=== PATIENT | male | born 2005 | race Two or more races ===

== ENCOUNTER 2024-12-24 05:41 | Day surgery (SDC) | payer OTHER ==
[2024-12-18 08:26] VITALS: BP 124/75
[2024-12-18 08:41] LABS: BASO % 0.3 % (0.1-1.2); EOS # 0.04 (0.04-0.54); EOS % 0.4 % (0.7-7.0); LYMPH # 1.22 (1.18-3.74); LYMPH % 11.4 % (19.3-53.1); MEAN PLATELET VOLUME 9.30 fl (9.4-12.4); MONO # 0.86 (0.24-0.82); MONO % 8.0 % (4.7-12.5); NEUT # 8.47 (1.56-6.13); NEUT % 79.2 % (34.0-71.1); RED CELL DISTRIBUTION WIDTH 13.2 % (11.6-14.4)
[2024-12-18 08:42] LABS: URINE APPEARANCE Clear; URINE BILIRRUBIN Negative (NEGATIVE); URINE BLOOD Negative; URINE COLOR Yellow; URINE GLUCOSE Negative (NEGATIVE); URINE KETONE Negative (NEGATIVE); URINE LEUKOCYTE Negative; URINE NITRATE Negative; URINE PROTEIN Negative (NEGATIVE); URINE UROBILINOGEN 1.0 E.U./dl
[2024-12-18 08:46] LABS: URINE BACTERIA 45.5 uL (0.0-1933)
[2024-12-18 08:55] LABS: URINE CAST 0.00 uL (0.0-1.40); URINE EPITHELIAL CELLS 0.3 uL (0.0-38.8); URINE RBC 0.8 uL (0.0-20.8); URINE WBC 1.2 uL (0.0-23.2)
[2024-12-18 09:02] LABS: INR 0.97
[2024-12-18 09:35] LABS: ALT/SGPT 29.0 U/L (12-78); AST/SGOT 22.0 U/L (15-37); BILIRUBIN TOTAL 0.8 mg/dL (0.3-1.2); BUN CREA RATIO 25.0 (7.0-25.0); CREATININE SERUM 0.68 mg/dL (0.70-1.30); GFR 148.66; GLOBULINA 2.9 G/DL (2.4-3.5); GLUCOSE FASTING 95.0 mg/dL (65-100); OSMOLALITY SERUM 281.0 MOSM/KG (275-295)
[~2024-12-24] VITALS: Ht 172.7 cm; Wt 71.2 kg
[~2024-12-24 05:41] MED LIST: BREO ELLIPTA 51 EACH IH; FLONASE16 GM; SINGULAIR4 M1
[2024-12-24] MEDS ORDERED: CEFAZOLIN SODIUM 1,000 MG VIAL IV ONE (12:45)
[2024-12-24] MEDS ORDERED: PANTOPRAZOLE SODIUM 40 MG/VIAL VIAL IV ONE (12:45)
[2024-12-24] MEDS ORDERED: SUGAMMADEX SODIUM 200 MG/2 ML VIAL IV ONE (13:00)
[2024-12-24] MEDS ORDERED: OXYMETAZOLINE HCL 15 ML NASAL DROPS NASAL ONE (13:30)
[2024-12-24] MEDS ORDERED: DEXAMETHASONE SODIUM PHOSP/PF 10 MG/ML VIAL IV ONE (14:45)
[2024-12-24] MEDS ORDERED: MORPHINE SULFATE 4 MG/ML VIAL IV ONE ×2 (15:10→15:40)
== END 2024-12-24 17:10 | disposition home or self-care (01) ==
LOC: CIR.AMB 05:41
PROVIDERS: ATTEND Otolaryngology
DX: J35.1 Hypertrophy of tonsils (principal)

== ENCOUNTER 2025-01-01 08:22 | Inpatient (IN) | payer OTHER ==
[~2025-01-01] VITALS: Ht 172.7 cm; Wt 70.8 kg
--- NOTE | 2025-01-01 08:37 | NUR ---
PACIENTE ALERTA Y ORIENTADO X3. REFIERE VENIR POR SANGRADO AL TOSER, LUEGO DE OPERACION DE AMIGDALAS. PACIENTE OPERADO POR SONIA MARGARITA. SE ESTIMAN VITALES Y SE UBICA.
[2025-01-01] MEDS ORDERED: ACETAMINOPHEN 325 MG TABLET PO PRN (09:00)
[2025-01-01] MEDS ORDERED: 0.9 % SODIUM CHLORIDE 1,000 ML IV SCH (09:00)
--- NOTE | 2025-01-01 09:18 | NUR ---
SE REALIZA LAB Y SE ORIENTA A PTE QUIEN REFIERE ENTENDER Y ACEPTAR.
[2025-01-01 09:26] LABS: BASO % 0.4 % (0.1-1.2); EOS # 0.16 (0.04-0.54); EOS % 2.0 % (0.7-7.0); LYMPH # 1.64 (1.18-3.74); LYMPH % 20.4 % (19.3-53.1); MEAN PLATELET VOLUME 8.50 fl (9.4-12.4); MONO # 0.90 (0.24-0.82); MONO % 11.2 % (4.7-12.5); NEUT # 5.26 (1.56-6.13); NEUT % 65.5 % (34.0-71.1); RED CELL DISTRIBUTION WIDTH 12.4 % (11.6-14.4)
[2025-01-01 09:51] LABS: ALT/SGPT 20.0 U/L (12-78); AST/SGOT 14.0 U/L (15-37); BILIRUBIN TOTAL 0.62 mg/dL (0.3-1.2); BUN CREA RATIO 9.0 (7.0-25.0); CREATININE SERUM 0.76 mg/dL (0.70-1.30); GFR 130.76; GLOBULINA 3.7 G/DL (2.4-3.5); GLUCOSE FASTING 81.0 mg/dL (65-100); OSMOLALITY SERUM 278.0 MOSM/KG (275-295)
[2025-01-01 09:52] LABS: INR 0.96
[2025-01-01 09:56] LABS: COVID-19 AG NEGATIVE (NEGATIVE)
[2025-01-01] MEDS ORDERED: 0.9 % SODIUM CHLORIDE 1,000 ML IJ SCH (13:09)
[2025-01-01] MEDS ORDERED: MORPHINE SULFATE 4 MG/ML CARTRIDGE IV SCH (13:09)
[2025-01-01] MEDS ORDERED: ONDANSETRON HCL 2 MG/ML VIAL IV PRN (13:15)
[2025-01-01 13:57] VITALS: BP 116/79; O2SAT 100
[2025-01-01 15:12] VITALS: BP 118/65; O2SAT 100
[2025-01-01 16:00] VITALS: BP 115/73; O2SAT 99
[2025-01-01] MEDS ORDERED: ACETAMINOPHEN 500 MG GEL..CAP PO SCH (17:00)
[2025-01-01] MEDS ORDERED: TRAMADOL HCL 50 MG TABLET PO SCH (17:00)
[2025-01-01] MEDS ORDERED: MONTELUKAST SODIUM 10 MG TABLET PO SCH (17:00)
[2025-01-01] MEDS ORDERED: DIPHENHYDRAMINE HCL 75 MG,LIDOCAINE HCL 30 ML,MAG HYDROX/ALUMINUM HYD/SIMETH 30 ML PO SCH (17:00)
[2025-01-01] MEDS ORDERED: PANTOPRAZOLE SODIUM 40 MG/VIAL VIAL IV PUSH SCH (21:00)
[2025-01-02 10:04] VITALS: BP 129/81; O2SAT 97
[2025-01-02 14:21] LABS: BASO % 0.2 % (0.1-1.2); EOS # 0.08 (0.04-0.54); EOS % 1.2 % (0.7-7.0); LYMPH # 1.18 (1.18-3.74); LYMPH % 18.3 % (19.3-53.1); MEAN PLATELET VOLUME 8.40 fl (9.4-12.4); MONO # 0.50 (0.24-0.82); MONO % 7.8 % (4.7-12.5); NEUT # 4.64 (1.56-6.13); NEUT % 72.0 % (34.0-71.1); RED CELL DISTRIBUTION WIDTH 12.2 % (11.6-14.4)
[2025-01-02 15:27] LABS: BUN CREA RATIO 8.0 (7.0-25.0); CREATININE SERUM 0.73 mg/dL (0.70-1.30); GFR 136.98; GLUCOSE FASTING 82.0 mg/dL (65-100); OSMOLALITY SERUM 280.0 MOSM/KG (275-295)
[2025-01-02 16:28] VITALS: BP 97/59; O2SAT 98
[2025-01-02] MEDS ORDERED: MORPHINE SULFATE 4 MG/ML CARTRIDGE IV SCH (17:00)
[2025-01-02] MEDS ORDERED: BENZONATATE 100 MG CAPSULE PO SCH ×2 (21:00→21:15)
[2025-01-03 01:57] VITALS: BP 110/72; O2SAT 97
[2025-01-03 06:45] LABS: BASO % 0.3 % (0.1-1.2); EOS # 0.20 (0.04-0.54); EOS % 3.1 % (0.7-7.0); LYMPH # 1.82 (1.18-3.74); LYMPH % 28.5 % (19.3-53.1); MEAN PLATELET VOLUME 8.50 fl (9.4-12.4); MONO # 0.78 (0.24-0.82); NEUT # 3.54 (1.56-6.13); NEUT % 55.4 % (34.0-71.1); RED CELL DISTRIBUTION WIDTH 12.4 % (11.6-14.4)
[2025-01-03 07:00] VITALS: BP 111/71; O2SAT 99
[2025-01-03 07:00] LABS: MONO % 12.2 % (4.7-12.5)
== END 2025-01-03 13:15 | disposition home or self-care (01) | DRG 948 ==
LOC: ER 08:22 → EMR PED 08:37 → ER 08:37 → SURG 13:33
PROVIDERS: Emergency Medicine Pediatric Emergency Medicine; ADMIT Internal Medicine; ATTEND Internal Medicine
DX: G89.18 Other acute postprocedural pain (principal); R07.0 Pain in throat; E86.0 Dehydration